=== PATIENT | male | born 1975 | race Caucasian/White ===

== ENCOUNTER 2018-08-25 17:49 | Emergency (ER) | payer OTHER ==
--- NOTE | 2018-08-25 17:57 | PDOC ---
Rapid Medical Evaluation Time Seen by Provider: 08/25/18 17:56 Medical Evaluation: Allergies Allergy/AdvReac Type Severity Reaction Status Date / Time No Known Allergies Allergy Verified 02/16/15 23:11 08/25/18 17:56 I have performed a brief in-person evaluation of this patient. The patient presents with a chief complaint of: abrasion to right wrist Pertinent physical exam findings: abrasion present to right volar wrist. Td-UTD. I have ordered the following: nothing The patient will proceed to the ED for further evaluation. Discharge Disposition - Diagnosis Abrasion - Referrals Referrals: Sea Alexander [Primary Care Provider] - - Patient Instructions - Post Discharge Activity
[2018-08-25 18:05] VITALS: BP 140/76; PULSE 87; TEMP 98.4; BMI 26.9
--- NOTE | 2018-08-25 18:40 | PDOC ---
History of Present Illness - General History Source: Patient Exam Limitations: No Limitations - History of Present Illness Initial Comments: 08/25/18 18:52 Patient is a 43 year old male with no significant past medical history, who presents to the ED with complaints of right wrist pain that began just prior to ED arrival. 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 He reports being advised by his superiors to come into the ED for further evaluation. Denies chest pain, sob. Denies nausea, vomiting. Denies head pain, loss of consciousness, Denies contact with sick individuals, out of state travelling. Denies any other symptoms. Allergies: None Social history: No smoking, No alcohol. No illicit drugs. Surgical history: None PMD: Dr. Alexander <Oleksandr Jiménez - Last Filed: 08/25/18 19:41> <Sheri Locke - Last Filed: 08/27/18 15:00> - General Chief Complaint: Abrasion Stated Complaint: INJURY-[employer] Time Seen by Provider: 08/25/18 17:56 Past History <Oleksandr Jiménez - Last Filed: 08/25/18 19:41> - Past Medical History HTN: Yes Thyroid Disease: Yes (hypo) - Surgical History Appendectomy: Yes - Immunization History Immunization Up to Date: Yes - Suicide/Smoking/Psychosocial Hx Smoking Status: No Smoking History: Never smoked Number of Cigarettes Smoked Daily: 0 Cigars Per Day: 0 Hx Alcohol Use: No Drug/Substance Use Hx: No Substance Use Type: Alcohol <Sheri Locke - Last Filed: 08/27/18 15:00> - Past Medical History Allergies/Adverse Reactions: Allergies Allergy/AdvReac Type Severity Reaction Status Date / Time No Known Allergies Allergy Verified 08/25/18 17:58 Home Medications: Ambulatory Orders NK [No Known Home Medication] 02/16/15 Review of Systems - Review of Systems Able to Perform ROS?: Yes Comments:: 08/25/18 18:52 GENERAL/CONSTITUTIONAL: No fever or chills. No weakness. HEAD, EYES, EARS, NOSE AND THROAT: No change in vision. No ear pain or discharge. No sore throat. GASTROINTESTINAL: No nausea, vomiting, diarrhea or constipation. GENITOURINARY: No dysuria, frequency, or change in urination. CARDIOVASCULAR: No chest pain or shortness of breath. RESPIRATORY: No cough, wheezing, or hemoptysis. MUSCULOSKELETAL: +Right wrist pain. No neck or back pain. SKIN: No rash NEUROLOGIC: No headache, vertigo, loss of consciousness, or change in strength/ sensation. ENDOCRINE: No increased thirst. No abnormal weight change. HEMATOLOGIC/LYMPHATIC: No anemia, easy bleeding, or history of blood clots. ALLERGIC/IMMUNOLOGIC: No hives or skin allergy. 08/25/18 19:42 <Oleksandr Jiménez - Last Filed: 08/25/18 19:41> *Physical Exam - Vital Signs Last Vital Signs Temp Pulse Resp BP Pulse Ox 98.4 F 87 16 140/76 99 08/25/18 17:59 08/25/18 17:59 08/25/18 17:59 08/25/18 17:59 08/25/18 17:59 - Physical Exam Comments: 08/25/18 18:53 GENERAL: Awake, alert, and fully oriented, in no acute distress HEAD: No signs of trauma EYES: PERRLA, EOMI, sclera anicteric, conjunctiva clear ENT: Auricles normal inspection, hearing grossly normal, nares patent, oropharynx clear without exudates. Moist mucosa NECK: Normal ROM, supple, no lymphadenopathy, JVD, or masses LUNGS: Breath sounds equal, clear to auscultation bilaterally. No wheezes, and no crackles HEART: Regular rate and rhythm, normal S1 and S2, no murmurs, rubs or gallops ABDOMEN: Soft, nontender, normoactive bowel sounds. No guarding, no rebound. No masses EXTREMITIES: +No pain over scaphoid. Normal range of motion, no edema. No clubbing or cyanosis. No cords, erythema, or tenderness NEUROLOGICAL: Cranial nerves II through XII grossly intact. Normal speech, normal gait SKIN: Warm, Dry, normal turgor, no rashes or lesions noted. <Oleksandr Jiménez - Last Filed: 08/25/18 19:41> - Vital Signs Last Vital Signs Temp Pulse Resp BP Pulse Ox 98.4 F 87 16 140/76 99 08/25/18 17:59 08/25/18 17:59 08/25/18 17:59 08/25/18 17:59 08/25/18 17:59 <Sheri Locke - Last Filed: 08/27/18 15:00> Moderate Sedation - Procedure Monitoring Vital Signs: Procedure Monitoring Vital Signs Temperature 98.4 F 08/25/18 17:59 Pulse Rate 87 08/25/18 17:59 Respiratory Rate 16 08/25/18 17:59 Blood Pressure 140/76 08/25/18 17:59 O2 Sat by Pulse Oximetry (%) 99 08/25/18 17:59 <Oleksandr Jiménez - Last Filed: 08/25/18 19:41> - Procedure Monitoring Vital Signs: Procedure Monitoring Vital Signs Temperature 98.4 F 08/25/18 17:59 Pulse Rate 87 08/25/18 17:59 Respiratory Rate 16 08/25/18 17:59 Blood Pressure 140/76 08/25/18 17:59 O2 Sat by Pulse Oximetry (%) 99 08/25/18 17:59 <Sheri Locke - Last Filed: 08/27/18 15:00> Medical Decision Making - Medical Decision Making 08/25/18 20:56 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 Pt with an abrasion to the R volar wrist. No TTP of the right wrist. Tetanus UTD. Wound cleaned and bandaged. Will dc home. I discussed the physical exam findings, ancillary test results and final diagnoses with the patient. I answered all of the patient's questions. The patient was satisfied with the care received and felt comfortable with the discharge plan and treatment plan. The Patient agrees to follow up with the primary care physician/specialist within 24-72 hours. Return precautions were given. <Sheri Locke - Last Filed: 08/27/18 15:00> *DC/Admit/Observation/Transfer <Oleksandr Jiménez - Last Filed: 08/25/18 19:41> - Discharge Dispostion Decision to Admit order: No <Sheri Locke - Last Filed: 08/27/18 15:00> Diagnosis at time of Disposition: Abrasion - Discharge Dispostion Disposition: HOME Condition at time of disposition: Stable - Referrals Referrals: Sea Alexander [Primary Care Provider] - - Patient Instructions Printed Discharge Instructions: DI for Abrasion Additional Instructions: You have a scrape to the R wrist Please use bacitracin twice a day Keep the wound clean and dry Follow up with your primary care doctor Return to the ED for any new or worsening symptoms - Post Discharge Activity Forms/Work/School Notes: Back to Work
== END 2018-08-25 19:22 | disposition home or self-care (01) ==
LOC: JERFT 17:49
DX: S69.81XA Other specified injuries of right wrist, hand and finger(s), initial encounter (principal); Y35.811A Legal intervention involving manhandling, law enforcement official injured, initial encounter; Y93.89 Activity, other specified; Y92.89 Other specified places as the place of occurrence of the external cause; Y99.0 Civilian activity done for income or pay
CPT/HCPCS: 99281-25

== ENCOUNTER 2022-02-14 22:21 | Emergency (ER) | payer BC ==
[2022-02-14 22:35] VITALS: BP 143/93; PULSE 64; RESP 16; TEMP 97.9; BMI 23.7
== END 2022-02-15 01:00 | disposition home or self-care (01) ==
LOC: FER 22:21
DX: R07.89 Other chest pain (principal)
CPT/HCPCS: 36415; 84484; 93005; 99283-25

== ENCOUNTER 2022-07-24 20:21 | Emergency (ER) | payer BC ==
[2022-07-24 20:53] VITALS: BP 135/89; PULSE 74; RESP 16; TEMP 97.9; BMI 25.1
== END 2022-07-24 22:16 | disposition home or self-care (01) ==
LOC: FER 20:21
DX: R07.89 Other chest pain (principal)
CPT/HCPCS: 36415; 71045-TC-FY; 82550; 84484; 93005; 99285-25

== ENCOUNTER 2023-03-15 20:31 | Emergency (ER) | payer BC ==
[2023-03-15 20:44] VITALS: RESP 16; TEMP 98.2; BMI 25.2
[2023-03-15] MEDS ORDERED: LISINOPRIL 5 MG TABLET PO ONE (20:47)
[2023-03-15] MEDS ORDERED: ACETAMINOPHEN 500 MG TABLET (FP) PO ONE (20:50)
[2023-03-15] MEDS ORDERED: LISINOPRIL 5 MG TABLET ONE (20:56)
[2023-03-15] MEDS ORDERED: ACETAMINOPHEN 500 MG TABLET (FP) ONE (20:56)
[2023-03-15 22:08] VITALS: BP 116/74; PULSE 56
== END 2023-03-15 22:09 | disposition home or self-care (01) ==
LOC: FER 20:31
DX: R51.9 Headache, unspecified (principal); I10 Essential (primary) hypertension
CPT/HCPCS: 70450-TC; 99284-25